=== PATIENT | female | born 1935 | race Caucasian/White ===

== ENCOUNTER 2019-01-29 16:45 | Observation (INO) | payer MEDICARE, OTHER, SELFPAY ==
[2019-01-29 16:51] VITALS: PULSE 137; RESP 42; TEMP 36.8; O2SAT 78
--- NOTE | 2019-01-29 17:08 | ED_ITS ---
HPI - SOB/Dyspnea General Chief Complaint: Shortness of Breath/Dyspnea Stated Complaint: NEEDS LUNGS SUCTIONED Time Seen by Provider: 01/29/19 17:04 Source: family (Son who is medical power of dietetic technician registered) Mode of arrival: wheelchair Limitations: other (Dementia) History of Present Illness Patient is an 83-year-old female. She does have a history ?advanced Alzheimer's disease ?per her son who is with her. Her son is also the medical power of dietetic technician registered. He does carry with her the patient's PLOST form which states DNR/DNI and comfort measures only. Patient's son brought her into the emergency department because she thinks that earlier today she aspirated. Since then she has had very coarse breath sounds. This seems to have been occurring over the past couple days. They do have a consult with hospice tomorrow however the patient is not currently on hospice. Patient is unable to provide any HPI or review of systems Related Data Home Medications Medication Instructions Recorded Confirmed acetaminophen 500 mg PO BID 01/29/19 01/29/19 acetaminophen 500 mg PO Q4H PRN 01/29/19 01/29/19 docusate sodium 250 mg PO BID 01/29/19 01/29/19 food supplemt, lactose-reduced 1 ea PO TID 01/29/19 01/29/19 [Ensure] hydrocodone-acetaminophen 1 tab PO Q6H PRN 01/29/19 01/29/19 hydroxyzine HCl 25 mg PO Q12H PRN 01/29/19 01/29/19 levetiracetam 250 mg PO BID 01/29/19 01/29/19 lorazepam 0.5 mg PO Q4H PRN 01/29/19 01/29/19 morphine concentrate 0.25 - 1 ml PO Q1H PRN 01/29/19 01/29/19 Review of Systems Review of Systems ROS Unobtainable: Unobtainable due to mental condition [facility] Medical History Dementia (Acute) Skin cancer (Acute) Social History caregiver/support person: Yes housing: assisted living facility Social History caregiver/support person: Yes housing: assisted living facility Exam Initial Vital Signs Initial Vital Signs: Vital Signs Temperature 98.2 F 01/29/19 16:51 Pulse Rate 137 H 01/29/19 16:51 Respiratory Rate 42 H 01/29/19 16:51 Pulse Oximetry 78 L 01/29/19 16:51 Const General: No acute distress and frail appearing Orientation: obtunded Limitations: altered mental status HENMT Head: normal to inspection and normocephalic Resp Effort & Inspection: labored, respiratory distress, no retractions and tachypneic Auscultation: rhonchi Cardio Rate: tachycardic Rhythm: regular rhythm Skin Rashes: no rashes Neuro Other: Up tended. Did not move extremities. Did not respond to stimulation Extrem General: cyanosis and No edema Psych Appearance: grossly normal and well kempt Course Orders Ordered: ED Orders 01/29/19 17:08 RT Consult Eval and Treat Now Vital Signs - 8 hr 01/29/19 16:51 01/29/19 17:34 Temperature 98.2 F Pulse Rate 137 H Respiratory Rate 42 H 28 H Pulse Oximetry 78 L 78 L MDM - SOB/Dyspnea MDM Narrative Medical decision making narrative: Patient arrived tachycardic and tachypneic and hypoxic. She had audible coarse breath sounds bilaterally. She was deep suctioned here in the emergency department for respiratory therapy with return of a significant amount of sputum. Her oxygen saturations did not improve afterwards however her skin color did improve. Had a discussion with the patient's son regarding options to include being discharged home versus admitting to the hospital for comfort care. Patient's son asked for the patient to be admitted to the hospital. Where she currently lives there is not 24 hour nursing care. Patient's son did state that they only wanted the patient to be made comfort care. They did understand that her oxygen saturations could potentially not improve. He expressed understanding of this. The patient was unable to participate in any coordination of care. I did discuss the case with Dr. Morales hospitalist who will admit for comfort measures. Discharge Plan Departure Patient Disposition: Home Clinical Impression: Hypoxia, Tachycardia Aspiration into airway Qualifiers: Encounter type: initial encounter Qualified Code(s): T17.908A - Unspecified foreign body in respiratory tract, part unspecified causing other injury, initial encounter Prescriptions: No Action morphine concentrate 100 mg/5 mL (20 mg/mL) solution 0.25 - 1 ml PO Q1H PRN (Reason: pain) RF: 0 hydrocodone-acetaminophen 5-325 mg tablet 1 tab PO Q6H PRN (Reason: pain) RF: 0 levetiracetam 250 mg tablet 250 mg PO BID RF: 0 acetaminophen 500 mg Tablet 500 mg PO Q4H PRN (Reason: pain) RF: 0 acetaminophen 500 mg Tablet 500 mg PO BID RF: 0 lorazepam 0.5 mg tablet 0.5 mg PO Q4H PRN (Reason: Anxiety) RF: 0 hydroxyzine HCl 25 mg tablet 25 mg PO Q12H PRN (Reason: Itching) RF: 0 docusate sodium 100 mg Tablet 250 mg PO BID RF: 0 Ensure Liquid 1 ea PO TID RF: 0
--- NOTE | 2019-01-29 17:24 | PC.NURSE ---
pt brought to ED by son who is her poa. per son pt is comfort care only, states here for her to get 'suctioned' pt audibly gurgling sounds. pt in wc unresponsive to voice. per son pt had dinner on saturday since having worsening symptoms.
[2019-01-29 17:34] VITALS: RESP 28; O2SAT 78
[2019-01-29 18:56] VITALS: BMI 24.9
[2019-01-29 19:46] VITALS: BP 91/48; PULSE 138; RESP 20; TEMP 36.6; O2SAT 91
--- NOTE | 2019-01-29 20:19 | PM.HP.1 ---
History of Present Illness Date Patient Seen: 01/29/19 Time Patient Seen: 19:45 Chief complaint: NEEDS LUNGS SUCTIONED Narrative: Anita Valera is an 83-year-old female resident of [facility] Living facility is sent over to the ED with a history of late onset Alzheimer's disease, essential hypertension, urinary incontinence, polyarthritis, in an unspecified external vaginal cancer a possible aspiration. The patient is nonverbal and unable to give me a history. Per her son Will, who is also her POA the patient is on comfort measures only and would like to only have symptomatic care for his mother. Per the patient's nurse, he was to have met with hospice tomorrow at 9:00 a.m. to discuss placing her on hospice. Patient is unable to provide me with a surgical, social history, or review of systems. Patient History Medical History Aspiration of fluid causing abnormal reaction or later complication (Acute) Dementia (Chronic) Essential hypertension (Chronic) Skin cancer (Chronic) Urinary incontinence (Chronic) Social History caregiver/support person: Yes housing: assisted living facility Smoking Status: Never smoker alcohol intake: never Family & Social History Social History: Prior Living Arrangements Skilled Nurse Facility caregiver/support person Yes Safety & Behavioral: Feels Safe in Current Yes Environment Tobacco & Substance use: Smoking Status Never smoker alcohol intake never Substance Use Type does not use Meds Home Medications Medication Instructions Recorded Confirmed Type acetaminophen 500 mg PO BID 01/29/19 01/29/19 History acetaminophen 500 mg PO Q4H PRN 01/29/19 01/29/19 History docusate sodium 250 mg PO BID 01/29/19 01/29/19 History food supplemt, lactose-reduced 1 ea PO TID 01/29/19 01/29/19 History [Ensure] hydrocodone-acetaminophen 1 tab PO Q6H PRN 01/29/19 01/29/19 History hydroxyzine HCl 25 mg PO Q12H PRN 01/29/19 01/29/19 History levetiracetam 250 mg PO BID 01/29/19 01/29/19 History lorazepam 0.5 mg PO Q4H PRN 01/29/19 01/29/19 History morphine concentrate 0.25 - 1 ml PO Q1H PRN 01/29/19 01/29/19 History Review of Systems Review of Systems unobtainable due to mental status Exam Vital Signs (past 8 hours): - 01/29/19 16:51 01/29/19 17:34 01/29/19 19:46 Temperature 98.2 F 97.9 F Pulse Rate 137 H 138 H Respiratory Rate 42 H 28 H 20 Blood Pressure 91/48 L Pulse Oximetry 78 L 78 L 91 Oxygen Delivery Method Non -Rebreather Narrative Exam Narrative: Gen: Ill-appearing, verbally nonresponsive 83 y.o. female, appears uncomfortable HEENT: normocephalic, atraumatic, conjunctiva clear, sclera non-icteric, oral mucosa pink and moist Neck: supple, full ROM Resp: Lungs CTA, non-labored breathing CV: RRR, no murmur or rubs Abd: soft, non-tender, normoactive BTs Skin: no lesions or rashes, dry and intact Neuro: Verbally nonresponsive, withdraws to noxious stimuli Extremities: moves all 4 extremities Psyche: Unable to assess Assessment & Plan Assessment & Plan narrative: Carissaence Soto will be admitted to comfort care measures only and symptoms of pain and dyspnea associated with aspiration managed until such time her family can arrange longer term placement on hospice. 1. Aspiration, Acute, present on admission Patient will receive supplemental 02 as needed RT to suction as needed Scopolamine patch and atropine drops to control secretions Hydroxyzine 25 mg po q 12 hours as needed for itching Morphine suspension 1 ml po q1h as needed 3. Seizure disorder, chronic and controlled Levetiracetam 250 mg po bid 2. End of life care consult for hospice placement on 01/29 [facility] for comfort Morphine solution for dyspnea, pain Acetaminophen for fever, mild pain Patient is admitted as an inpatient as her stay is anticipated to exceed 2 midnights. FEN: Saline lock, regular necter thick diet VTE Prophylaxis: none, due to comfort care only status Disposition: Probable discharge back to 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
--- NOTE | 2019-01-29 20:23 | P.HP_ITS ---
History of Present Illness Date Patient Seen: 01/29/19 Time Patient Seen: 19:45 Chief complaint: NEEDS LUNGS SUCTIONED Narrative: Anita Valera is an 83-year-old female resident of [facility] Living facility is sent over to the ED with a history of late onset Alzheimer's disease, essential hypertension, urinary incontinence, polyarthritis, in an unspecified external vaginal cancer a possible aspiration. The patient is nonverbal and unable to give me a history. Per her son Will, who is also her POA the patient is on comfort measures only and would like to only have symptomatic care for his mother. Per the patient's nurse, he was to have met with hospice tomorrow at 9:00 a.m. to discuss placing her on hospice. Patient is unable to provide me with a surgical, social history, or review of systems. Patient History Medical History Aspiration of fluid causing abnormal reaction or later complication (Acute) Dementia (Chronic) Essential hypertension (Chronic) Skin cancer (Chronic) Urinary incontinence (Chronic) Social History caregiver/support person: Yes housing: assisted living facility Smoking Status: Never smoker alcohol intake: never Family & Social History Social History: Prior Living Arrangements Skilled Nurse Facility caregiver/support person Yes Safety & Behavioral: Feels Safe in Current Yes Environment Tobacco & Substance use: Smoking Status Never smoker alcohol intake never Substance Use Type does not use Meds Home Medications Medication Instructions Recorded Confirmed Type acetaminophen 500 mg PO BID 01/29/19 01/29/19 History acetaminophen 500 mg PO Q4H PRN 01/29/19 01/29/19 History docusate sodium 250 mg PO BID 01/29/19 01/29/19 History food supplemt, lactose-reduced 1 ea PO TID 01/29/19 01/29/19 History [Ensure] hydrocodone-acetaminophen 1 tab PO Q6H PRN 01/29/19 01/29/19 History hydroxyzine HCl 25 mg PO Q12H PRN 01/29/19 01/29/19 History levetiracetam 250 mg PO BID 01/29/19 01/29/19 History lorazepam 0.5 mg PO Q4H PRN 01/29/19 01/29/19 History morphine concentrate 0.25 - 1 ml PO Q1H PRN 01/29/19 01/29/19 History Review of Systems Review of Systems unobtainable due to mental status Exam Vital Signs (past 8 hours): - 01/29/19 16:51 01/29/19 17:34 01/29/19 19:46 Temperature 98.2 F 97.9 F Pulse Rate 137 H 138 H Respiratory Rate 42 H 28 H 20 Blood Pressure 91/48 L Pulse Oximetry 78 L 78 L 91 Oxygen Delivery Method Non -Rebreather Narrative Exam Narrative: Gen: Ill-appearing, verbally nonresponsive 83 y.o. female, appears uncomfortable HEENT: normocephalic, atraumatic, conjunctiva clear, sclera non-icteric, oral mucosa pink and moist Neck: supple, full ROM Resp: Lungs CTA, non-labored breathing CV: RRR, no murmur or rubs Abd: soft, non-tender, normoactive BTs Skin: no lesions or rashes, dry and intact Neuro: Verbally nonresponsive, withdraws to noxious stimuli Extremities: moves all 4 extremities Psyche: Unable to assess Assessment & Plan Assessment & Plan narrative: Carissaence Soto will be admitted to comfort care measures only and symptoms of pain and dyspnea associated with aspiration managed until such time her family can arrange longer term placement on hospice. 1. Aspiration, Acute, present on admission * Patient will receive supplemental 02 as needed * RT to suction as needed * Scopolamine patch and atropine drops to control secretions * Hydroxyzine 25 mg po q 12 hours as needed for itching * Morphine suspension 1 ml po q1h as needed 3. Seizure disorder, chronic and controlled * Levetiracetam 250 mg po bid 2. End of life care * consult for hospice placement on 01/29 * [facility] for comfort * Morphine solution for dyspnea, pain * Acetaminophen for fever, mild pain Patient is admitted as an inpatient as her stay is anticipated to exceed 2 midnights. 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
[2019-01-29 23:30] VITALS: BP 163/71; PULSE 96; RESP 16; TEMP 36.6; O2SAT 87
--- NOTE | 2019-01-29 23:39 | PC.NURSE ---
Assumed care of pt at 2100. Pt obtunded. Does not awaken during brief changes or repositioning. Repositioning q 2 hrs. 6L NC sats 88%, CPOX on. Per provider okay for pt to not have IV and che can be placed if nursing staff feels pt will be more comfortable with che. Bed alarm on. Door open for close monitoring.
[2019-01-30] VITALS (7 sets, daily range): BP systolic 98–170; BP diastolic 51–68; PULSE 97–98; RESP 16–20; TEMP 36.7–36.8; O2SAT 89–99
--- NOTE | 2019-01-30 08:36 | CM.DANOTE ---
Addendum entered by Lois Dumont LPN 01/30/19 12:09: Have worked on coordination of the d/c plan with pt and her family (with focus on POA son Trey) as well as with Dr. Morales. Pt is now set to go to [facility] at 1315 via ambulance transport. Pt is quite lethargic, o2 is in place, has poor safely awareness and trunk control. Multiple questions from many family members have been reponded to by both myself and Dr. Morales and all seem satisified with the d/c plan at this time. Katerine did confirm with [facility] team that they could not accept pt back until [facility] was fully in place. [facility] is updated and expect to have everything set up by first of next week. [employer] eval will be done at [facility] today. Family with multiple concerns re bed rails, lack of, and safely. They have a private caregiver who sits next to pt's bed at [facility] to keep her from falling out and wish to do this at [facility]...Mayra is aware and agreeable. Caregiver was also present for the discussions. All orders are now completed and faxed to [facility]. PASRR: completed, faxed to [facility], placed into snf order packet and given to [facility] for scan process. Ambulance Cert of Med Necessity Form is completed: copy to CM sp to scan. Placed near snf order packet for [facility] crew along with pt's face sheet. Care team members and family are all updated. Will follow prn until pt leaves. Will fax this note to [facility] as an update. Addendum entered by Lois Dumont LPN 01/30/19 09:11: Spoke also with [facility] and have now coordinated the visit to be here in the hospital. [facility] Reina is here now just starting the visit. Trey and pt's sister Evelia Mari are at bedside. Brief discussion with all and then with Dr. Morales re plan for pt to d/c, likely today, to [facility] to give time for [facility] to put DME in place and have an RN available to open pt to [facility] services. Have discussed this with Katerine, on for [facility] admissions and she will talk with her pension administrator Meagan. Referral is in to Mayra/[facility] who will review with her team in morning meeting. Dr. Morales notes pt looks very stable this morning and should remain so as long as she does not aspirate again. He is expecting her to d/c to [facility] today if possible. Pt would be paying privately at [facility] if she is on pvt pay at [facility]. Will follow closely. Original Note: Discharge Planning/Care Management DCP: assessment: case received, EMR reviewed. Confirmed via information sent over to ER from [facility] ([facility]) that pt is a resident of the facility. Pt carries dx of Alzheimer's dementia. Checked in on pt and noted her lying quietly in bed, eyes closed. Appears comfortable at this time. Pt is an 83 year old female who admitted last evening to care of hospitalist team. PCP: LINETTE Alberts Payer: Medicare and [employer] D Noted that a Hospice info visit was planned for 0900 today at the facility. Have spoken now with pt's GUERA son Trey Low: [phone] CM Discharge Assessment Start: 01/30/19 08:34 Freq: Status: Active Protocol: Document 01/30/19 08:34 ITV (Rec: 01/30/19 08:35 ITV [id number]) Discharge Planning Assessment Advance Directives? Yes History Provided By Family Member Medical Record Prior Living Arrangements Assisted Living Type of transporation used prior to Relies on Others admit Facility Name Admitted From: [facility] Living Independent with ADL's No Is patient alert and oriented? No Whiteboard Updated in Patient Room with Yes name and ext. # of Service Officer Review Status In Process
[2019-01-30] MEDS: SCOPOLAMINE 1 PATCH TOP (10:10)
--- NOTE | 2019-01-30 11:58 | PM.DS.1 ---
History of Present Illness Date Patient Seen: 01/30/19 Time Patient Seen: 10:00 Chief complaint: NEEDS LUNGS SUCTIONED Narrative: As per Melva rose: Anita Valera is an 83-year-old female resident of [facility] facility is sent over to the ED with a history of late onset Alzheimer's disease, essential hypertension, urinary incontinence, polyarthritis, in an unspecified external vaginal cancer a possible aspiration. The patient is nonverbal and unable to give me a history. Per her son Will, who is also her POA the patient is on comfort measures only and would like to only have symptomatic care for his mother. Per the patient's nurse, he was to have met with hospice tomorrow at 9:00 a.m. to discuss placing her on hospice. Patient is unable to provide me with a surgical, social history, or review of systems. Discharge Providers Date of admission: 01/29/19 18:19 Discharge Date: 01/30/19 Consults: 01/29/19 20:01 Consult to [employer] Routine Comment: Hospice consult 01/30/19 09:56 Consult to Speech Therapy Evaluate & Treat Comment: Physician Instructions: Evaluate and treat Discharge provider: Jalil Morales DO Summary Discharge Diagnosis: 1. Aspiration, acute, present on admission 2. End of Life Care 3. Seizure disorder, chronic, controlled Hospital Course: Anita Valera will was admitted for comfort care measures only and symptoms of pain and dyspnea associated with aspiration managed until such time her family can arrange longer term placement on hospice. She will be transferred to [facility] for further care until hospice placement. 1. Aspiration, Acute, present on admission Patient will receive supplemental 02 as needed RT to suction as needed Scopolamine patch and atropine drops to control secretions Hydroxyzine 25 mg po q 12 hours as needed for itching Morphine suspension 1 ml po q1h as needed 3. Seizure disorder, chronic and controlled Levetiracetam 250 mg po bid 2. End of life care SW consult for hospice placement on 01/29 Welch when needed for comfort Morphine solution for dyspnea, pain Acetaminophen for fever, mild pain Status at Discharge Cognitive/behavioral status at discharge: at baseline, confused Functional status at discharge: bed bound Overall status at discharge: other (pending hospice) Exam Vital Signs (past 8 hours): - 01/30/19 07:51 01/30/19 08:00 Temperature 98.2 F Pulse Rate 97 H Respiratory Rate 20 Blood Pressure 98/51 L Pulse Oximetry 92 90 L Oxygen Delivery Method Nasal Cannula Oxygen Flow Rate 6 Narrative Exam Narrative: Gen: Ill-appearing, verbally nonresponsive 83 y.o. female, appears uncomfortable HEENT: normocephalic, atraumatic, conjunctiva clear, sclera non-icteric, oral mucosa pink and moist Neck: supple, full ROM Resp: Lungs CTA, non-labored breathing CV: RRR, no murmur or rubs Abd: soft, non-tender, normoactive BTs Skin: no lesions or rashes, dry and intact Neuro: moans occasionally, RUE tremor noted. Extremities: moves all 4 extremities Psych: Unable to assess Discharge Plan Discharge Plan Patient Disposition: SNF Transfer to: [facility] Transportation: Ambulance Discharge comment: Anita Valera will be admitted to comfort care measures only and symptoms of pain and dyspnea associated with aspiration managed until such time her family can arrange longer term placement on hospice. 1. Aspiration, Acute, present on admission Patient will receive supplemental 02 as needed RT to suction as needed Scopolamine patch and atropine drops to control secretions Hydroxyzine 25 mg po q 12 hours as needed for itching Morphine suspension 1 ml po q1h as needed 3. Seizure disorder, chronic and controlled Levetiracetam 250 mg po bid 2. End of life care SW consult for hospice placement on 01/29 Welch for comfort Morphine solution for dyspnea, pain Acetaminophen for fever, mild pain I certify the postop hospital assisted care is medically necessary on a continuing basis for any conditions for which he/ she received care during this hospitalization.: Yes The receiving facility has agreed to accept transfer and provide medical treatment.: Yes Discharge Med Rec/Prescriptions Prescriptions: New acetaminophen 160 mg/5 mL Suspension 500 mg PO Q4HR PRN (Reason: As Needed For Fever/Mild Pain) 30 Days Qty: 500 RF: 0 docusate sodium 50 mg/5 mL Liquid 250 mg PO BID 7 Days Qty: 350 RF: 0 polyvinyl alcohol [Artificial Tears (polyvin alc)] 1.4 % Drops 1 drops EYE-BOTH Q2HR PRN (Reason: Dry Eye(S)) 10 Days Qty: 3 RF: 0 hydroxyzine HCl 10 mg/5 mL Solution 25 mg PO Q12HR PRN (Reason: Itching) 10 Days Qty: 250 RF: 0 scopolamine base [Transderm-Scop] 1 mg over 3 days Patch 3 Day 1 patch topical Q72H PRN (Reason: Secretions) 10 Days Qty: 3 RF: 0 atropine 1 % Drops 2 drops PO Q2HR PRN (Reason: Secretions) 10 Days Qty: 5 RF: 0 Continued levetiracetam 250 mg tablet 250 mg PO BID RF: 0 morphine concentrate 100 mg/5 mL (20 mg/mL) solution 0.25 - 1 ml PO Q1H PRN (Reason: pain) 7 Days Qty: 4 RF: 0 lorazepam 0.5 mg tablet 0.5 mg PO Q4H PRN (Reason: Anxiety) 30 Days Qty: 30 RF: 0 Discontinued hydrocodone-acetaminophen 5-325 mg tablet 1 tab PO Q6H PRN (Reason: pain) RF: 0 acetaminophen 500 mg Tablet 500 mg PO Q4H PRN (Reason: pain) RF: 0 acetaminophen 500 mg Tablet 500 mg PO BID RF: 0 hydroxyzine HCl 25 mg tablet 25 mg PO Q12H PRN (Reason: Itching) RF: 0 docusate sodium 100 mg Tablet 250 mg PO BID RF: 0 Ensure Liquid 1 ea PO TID RF: 0 Discharge Health Status Brief summary of current health status: Patience Soto will be is currently comfort care measures only and symptoms of pain and dyspnea associated with aspiration managed until such time her family can arrange longer term placement on hospice. She may need intermittent suctioning as well for secretion management. 1. Aspiration, Acute, present on admission Recommend supplemental 02 as needed Recommend suction as needed Scopolamine patch and atropine drops to control secretions Hydroxyzine 25 mg po q 12 hours as needed for itching Morphine suspension 1 ml po q1h as needed 3. Seizure disorder, chronic and controlled Levetiracetam 250 mg po bid 2. End of life care Currently pending hospice. Welch for comfort when needed Morphine solution for dyspnea, pain Acetaminophen for fever, mild pain Precautions: [place] Provider Discharge Instructions Diet: Diet as Tolerated Diet comment: Pending speech evaluation to be done at [facility]. Catheter: 2-way Welch Catheter comment: for comfort only Discharge Data Attending Provider: Jalil Morales Admit Date/Time: 01/29/19 18:19 Discharge Interventions Interventions: Discharge assessment Last Done: 08/16/19 11:47 Quality VTE Deep Vein Thrombosis/Pulmonary Embolism Present on Admission: No
--- NOTE | 2019-01-30 12:04 | PC.NURSE ---
Day shift: Informed MD that Pt's family did not want Welch cath placed unit brief changes become too painful/uncomfortable.
--- NOTE | 2019-01-30 12:08 | SLP.IPNOTE ---
Order received. Patient was repositioned upright and observed to have wet/gurgly breath sounds with intermittent unproductive coughing requiring suctioning of yellow mucous. No swallow response observed. She is not safe for PO intake at this time; therefore, no oral trials were provided. Verbal education regarding oral care and aspiration risk/precautions including positioning in bed, and use of suction with oral care were provided to the patient's son and her private care management associate who expressed understanding .Per nursing and family, patient will d/c to [facility] on Hospice today and receive swallow re-evaluation there.
--- NOTE | 2019-01-30 12:55 | PC.NURSE ---
Day shift: Report given to Bina at [facility] by telephone.
--- NOTE | 2019-01-30 13:39 | PC.NURSE ---
Day shift: Pt left unit with BLS. BLS has SNF packet. Pt's family has personal belongings. Off unit at approx 1340.
== END 2019-01-30 13:41 ==
LOC: ED 18:19 → AC 18:19
PROVIDERS: Admitting Provider Internal Medicine; Emergency Provider Emergency Medicine; Visit Provider Internal Medicine
DX: T17.900A Unspecified foreign body in respiratory tract, part unspecified causing asphyxiation, initial encounter (principal); R09.02 Hypoxemia; R06.82 Tachypnea, not elsewhere classified; I10 Essential (primary) hypertension; G30.9 Alzheimer's disease, unspecified; F02.80 Dementia in other diseases classified elsewhere, unspecified severity, without behavioral disturbance, psychotic disturbance, mood disturbance, and anxiety; G40.909 Epilepsy, unspecified, not intractable, without status epilepticus; Z66 Do not resuscitate
CPT/HCPCS: 92610; 94799; 99282; G0378